=== PATIENT | male | born 1950 | race Caucasian/White ===

== ENCOUNTER 2017-03-13 07:05 | Emergency (ER) | payer MEDICARE, MEDICAID ==
[~2017-03-13] VITALS: Ht 170.2 cm; Wt 81.6 kg
[2017-03-13 07:25] VITALS: BP 123/57
[2017-03-13] MEDS ORDERED: ATOR40TA PO (07:32)
[2017-03-13] MEDS ORDERED: ENAL5TAB76 PO (07:32)
[2017-03-13] MEDS ORDERED: ASPI81CT27 PO (07:32)
[2017-03-13] MEDS ORDERED: METO50TA68 PO (07:32)
[2017-03-13] MEDS ORDERED: GLIP10TE3 PO (07:32)
[2017-03-13] MEDS ORDERED: METF100028 PO (07:32)
--- NOTE | 2017-03-13 07:34 | NUR ---
Patient ambulated to bed 3. RN evaluating patient at bedside.
--- NOTE | 2017-03-13 07:40 | NUR ---
PT PRESENTS TO ER W/C/O DIZZINESS X1 HOUR. HX DM, HTN, HYPERLIPIDEMIA; DENIES N/V/D; SKIN IS PINK/WARM/DRY; AAOX4 WITH EVEN AND STEADY GAIT; LUNGS CLEAR BL; HR EVEN AND REGULAR; PT DENIES ANY FEVER, CP, SOB, OR COUGH AT THIS TIME; PATIENT STATES PAIN OF 0/10 AT THIS TIME; VSS; PATIENT POSITIONED FOR COMFORT; HOB ELEVATED; BEDRAILS UP X2; BED DOWN. ER MD MADE AWARE OF PT STATUS.
--- NOTE | 2017-03-13 07:51 | NUR ---
ARGENISO PT TAKEN OFF THE UNIT FOR CT OF THE HEAD VIA WHEEL CHAIR BY REGION MANAGER
[2017-03-13 07:59] LABS: BASOPHILS # (AUTO) 0.3 K/uL (0.00-0.22); BASOPHILS % (AUTO) 3.2 % (0.0-2.0); EOSINOPHILS # (AUTO) 0.1 K/uL (0-0.4); EOSINOPHILS % (AUTO) 1.7 % (0.0-4.0); HEMATOCRIT 45.3 % (36-52); MEAN CORPUSCULAR HEMOGLOBIN 29 pg (27-31); MEAN CORPUSCULAR HGB CONC 33 g/dL (33-37); MEAN CORPUSCULAR VOLUME 89 fL (80-94); MONOCYTES # (AUTO) 0.6 K/uL (0.8-1.0); NEUTROPHILS # (AUTO) 5.5 K/uL (1.8-7.7); NEUTROPHILS % (AUTO) 64.1 % (42.2-75.2); PLATELET COUNT (AUTO) 213 K/uL (140-450); RED BLOOD CELL COUNT(AUTO) 5.12 MIL/uL (4.20-6.10); RED CELL DISTRIBUTION WIDTH 11.9 % (11.6-13.7); WHITE BLOOD COUNT (AUTO) 8.5 K/uL (4.8-10.8)
--- NOTE | 2017-03-13 08:09 | NUR ---
Dr. Garcia evaluating patient at bedside.
[2017-03-13] MEDS ORDERED: MECLIZINE 25 MG TAB PO ONE (08:15)
[2017-03-13] MEDS ORDERED: NACL 0.9% 500 ML IV ONE (08:15)
[2017-03-13 08:21] LABS: INR 1.1 (0.8-1.2); PARTIAL THROMBOPLASTIN TIME 24.1 secs (22-35.6); PROTHROMBIN TIME 10.5 secs (10.8-13.4)
[2017-03-13 08:22] LABS: ALBUMIN 3.8 g/dL (3.4-5.0); ANION GAP 11.2 (8-16); CREATININE 0.8 mg/dL (0.6-1.3); POTASSIUM 5.2 mmol/L (3.5-5.1); TOTAL BILIRUBIN 0.7 mg/dL (0.0-1.0); TOTAL PROTEIN, SERUM 7.3 g/dL (6.4-8.2)
[2017-03-13 08:23] LABS: BILIRUBIN,URINE NEGATIVE (NEGATIVE); BLOOD, URINE NEGATIVE (NEGATIVE); COLOR,URINE YELLOW (YELLOW); LEUKOCYTE ESTERASE ,URINE NEGATIVE (NEGATIVE); NITRITE, URINE NEGATIVE (NEGATIVE); PH,URINE 6.5 (5.0-9.0); PROTEIN,URINE TRACE (NEGATIVE); UGLUCOSE 1+ (NEGATIVE); UROBILINOGEN,URINE 0.2 EU/dL (0.2 - 1)
[2017-03-13 08:39] LABS: APPEARANCE,URINE SLIGHTLY HAZY (CLEAR)
[2017-03-13 08:40] LABS: BACTERIA,URINE 1+ /HPF (None Seen); MUCUS,URINE 1+ /LPF (None Seen); RBC,URINE 0-5 (RARE) /HPF (0-5); SQUAMOUS EPITHELIAL CELL,UR 0-3 (FEW) /LPF (0-3 (FEW)); WBC,URINE 0-5 (RARE) /HPF (0-5)
--- NOTE | 2017-03-13 08:49 | NUR ---
AAO PT NO C/O DIZZINESS AT THIS TIME, ABLE TO COMMUNICATE WITH FULL SENTENCES WITH BROTHER AT BEDSIDE, NO MOTOR DEFICIT, ON MONITOR, VSS, WILL CONTINUE TO MONITOR
[2017-03-13 09:38] VITALS: BP 123/59
--- NOTE | 2017-03-13 09:38 | NUR ---
Patient discharged with v/s stable. Written and verbal after care instructions given and explained. Patient verbalized understanding. Ambulatory with steady gait. All questions addressed prior to discharge. Advised to follow up with PMD.
== END 2017-03-13 09:38 | disposition home or self-care (01) ==
LOC: MED 07:05
DX: R11.0 Nausea (principal); R61 Generalized hyperhidrosis; R42 Dizziness and giddiness; E11.9 Type 2 diabetes mellitus without complications; I10 Essential (primary) hypertension; E78.5 Hyperlipidemia, unspecified
CPT/HCPCS: 36415; 70450; 80053; 81001; 84484; 85025; 85610; 85730; 87086; 93005; 99285; J7030; J8597